=== PATIENT | female | born 1960 | race Caucasian/White ===

== ENCOUNTER 2016-07-04 12:25 | Inpatient (IN) | payer OTHER ==
--- NOTE | ~2016-07-04 | DS ---
Discharge Summary [facility] [address] [place]. [address] NAME: SUSHMA WOODALL : 62 STATUS : DIS IN PAT#: [id number] AGE: 55 ADM/REG DATE : 07/04/16 MR#: [id number] REPORT SERV DATE: 07/08/16 DICTATED BY: GERHARD MARQUEZ DATE: 07/07/16 REPORT STATUS : Draft TRANSCRIBED BY: MODL DATE: 07/07/16 ADMISSION DATE: 07/04/2016 DISCHARGE DATE: 07/07/2016 HISTORY OF PRESENT ILLNESS: The patient is a 55-year-old female with a history of Crohn's disease, who presented to the hospital with a complaint of nausea, vomiting, and abdominal pain. For further details, please refer to H and P dictated by Dr. Nitish Resendiz on 07/05/2016. HOSPITAL COURSE: Upon presentation, the patient was admitted on the Hospitalist Service for further management. She was noted to be severely dehydrated. The patient has several electrolyte abnormalities. Also on presentation, the patient was noted to have an DRE with a creatinine of 3.0. The patient was subsequently started on IV fluids and electrolyte abnormalities were corrected. Status post placement on IV fluids, the patient's creatinine has trended out nicely, currently today is 1.4. She reports complete resolution of her symptoms. She has also remained hemodynamically stable during this hospitalization. Given completion of workup, given her hemodynamic stability, the patient will be discharged today to follow up with her primary care physician. Plan was discussed with the patient, who voices understanding, is agreeable with this plan. DISCHARGE DIAGNOSES: 1. Volume depletion. 2. Acute kidney injury. 3. Hypokalemia. 4. Hypomagnesemia. 5. Crohn's disease. 6. Chronic perirectal fistula. 7. Tobacco abuse. DISCHARGE MEDICATIONS: Azathioprine 50 mg p.o. daily, Cymbalta 60 mg p.o. daily, Imodium 4 mg p.o. three times a day, magnesium oxide 400 mg p.o. three times a day, omeprazole 20 mg p.o. daily, sertraline 50 mg p.o. daily. CONSULTANTS: No consultants. IMAGIN. CT abdomen and pelvis without contrast, impression:. a. No definite acute abnormality appreciated within the abdomen or pelvis. No gross CT evidence for acute pancreatitis. b. The patient post right hemicolectomy with ileocolonic anastomosis near the level of the hepatic flexure of the colon. There is a diverting ileostomy present. No bowel obstruction pattern demonstrated. c. Biliary nonobstructing nephrolithiasis. 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 For further details, please refer to CT imaging from 07/04/2016. Discharge Summary [address] [address] NAME: SUSHMA WOODALL : 62 STATUS : DIS IN PAT#: [id number] AGE: 55 ADM/REG DATE : 07/04/16 MR#: [id number] REPORT SERV DATE: 07/08/16 DICTATED BY: GERHARD MARQUEZ DATE: 07/07/16 REPORT STATUS : Draft TRANSCRIBED BY: JOSÉ MANUEL DATE: 07/07/16 DISPOSITION: The patient will be discharged home. ACTIVITY: As tolerated. The patient was also counseled to abstain from tobacco use. DIET: As tolerated. Greater than 30 minutes was spent coordinating care, planning discharge, providing counseling, medication reconciliation, and dictation of note. ISIS/JOSÉ MANUEL Gerhard Marquez MD / [id number] CC: MD Kristian Dietrich M.D.
--- NOTE | ~2016-07-04 | HP ---
History And Physical [place] [id number] [facility] [place]. [address] NAME: SUSHMA WOODALL : 62 STATUS : ADM IN PAT#: [id number] AGE: 55 ADM/REG DATE : 07/04/16 MR#: [id number] REPORT SERV DATE: 07/05/16 DICTATED BY: STANLEY RENTERIA DATE: 07/04/16 REPORT STATUS : Draft TRANSCRIBED BY: MODL DATE: 07/04/16 DATE OF ADMISSION: 07/04/2016 CHIEF COMPLAINT: A 55-year-old female with chronic Crohn's disease, now presenting with nausea, vomiting, abdominal pain, and evidence of severe dehydration. HISTORY OF PRESENT ILLNESS: The patient's history was obtained through careful interview with the patient, coupled with review of [facility] medical records. The patient, just on the day prior to admission, began to develop extreme nausea with uncontrolled vomiting. She vomited up bile, no blood. She did not notice any increased ostomy output, but she had severe abdominal cramping pain, felt diffusely of 15 to 20 out of 10 severity, she describes it. She denies any fevers or chills. She also had cramping and discomfort over "all the muscles" of her body. No lightheadedness, but she almost fell two to two times yesterday. She has felt weak. She has had occasional palpitations, but none today. No shortness of breath. No chest pain. No anxiety. No panic attacks. No rash. No change in urine habit. She has no rectal output at all after her ostomy placement. She claims that her seton tubing for chronic cshuyler-rectal fistulas is stable and without any pain, minimal bleeding, and no purulent drainage. It seems to be well controlled as far she can tell. REVIEW OF SYSTEMS: Otherwise, a 14-point review of systems was obtained and was negative. PAST MEDICAL HISTORY: 1. Crohn's disease, now on Imuran and Humira, previously on Remicade and Stelara with a history of a right colectomy with ostomy. 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 3. Hypertension. 4. Urinary tract infection. 5. Anxiety and panic attacks. 6. Perianal fistulas, followed by Dr. Pal. 7. Fibromyalgia. 8. Nephrolithiasis. 9. Cholelithiasis. 10.Left ear drum perforation with otitis media. 11.Chronic kidney disease stage 3. Baseline creatinine of about 1.3. 12.No cardiac disease. 13.No lung disease. History And Physical [address] [place]. [address] NAME: SUSHMA WOODALL : 62 STATUS : ADM IN PAT#: [id number] AGE: 55 ADM/REG DATE : 07/04/16 MR#: [id number] REPORT SERV DATE: 07/05/16 DICTATED BY: STANLEY RENTERIA DATE: 07/04/16 REPORT STATUS : Draft TRANSCRIBED BY: JOSÉ MANUEL DATE: 07/04/16 PAST SURGICAL HISTORY: 1. Ostomy with right colectomy. 2. Appendectomy. 3. Hysterectomy. 4. x2. 5. Breast biopsy. 6. Partial thyroidectomy. ALLERGIES: FLAGYL, FLUOROQUINOLONES, REMICADE/INFLIXIMAB. SOCIAL HISTORY: The patient has been cutting back on smoking. No alcohol abuse. She is , but her is disabled from strokes. She has two children, who live locally, four grandchildren. She lives in [place], [place]. Recently moved in with her daughter. FAMILY HISTORY: Cousin with Crohn's disease. A strong family history of diabetes and heart disease. CURRENT MEDICATIONS: Include Humira 40 mg subcutaneous weekly, Imuran 50 mg p.o. daily, Cymbalta 60 mg p.o. daily, hydrocodone p.r.n., Imodium 4 mg p.o. t.i.d. schedule, magnesium 400 mg p.o. t.i.d., Robaxin 500 mg p.o. t.i.d. p.r.n., Prilosec 20 mg p.o. daily, potassium 20 mEq p.o. daily, Phenergan p.r.n., Zoloft 50 mg daily, octreotide 60 mg subcutaneous daily. PHYSICAL EXAMINATION: VITAL SIGNS: Temperature 98.1, pulse 97, blood pressure 96/50, respiratory rate is 16, O2 saturation 98% on room air. GENERAL: A pleasant, cooperative female, in no particular distress at this time. HEENT: Pupils equal, round, and reactive to light. No conjunctival pallor. No scleral icterus. Nares are patent. Oropharynx is clear of obstruction. Very dry mucous membranes. NECK: Trachea midline. No thyromegaly. LYMPH: No cervical lymphadenopathy. No supraclavicular lymphadenopathy. RESPIRATORY: Clear to auscultation at bases. No wheezes, rales, or rhonchi. Normal respiratory effort. CARDIOVASCULAR: Regular rate and rhythm. No murmurs, rubs, or gallops. No current extremity edema is appreciated. ABDOMEN: Minimally tender throughout. Nonfocal. No guarding. No rebound. Nondistended. Active bowel tones. No hepatosplenomegaly. DERMATOLOGIC: Warm and dry extremities. No pallor. No cyanosis. RECTAL: Like ways the exam was done with female salvage mechanic of the perirectal area that showed a stable appearing perirectal and anal fistulas with no purulent drainage, no fluctuance, no erythema, no heat. Generally, nontender to exam with stable appearing seton tubing. The patient does have peripheral tenting of her skin to suggest dehydration. PSYCHIATRIC: Normal affect. Good mood. Alert and oriented x3. LABORATORY DATA: Ionized calcium is very low at 3.17. Troponin negative. Lipase 700. Lactic acid 0.8. Alkaline phosphatase 273, total bilirubin 0.8. Sodium 139, potassium 4.1 History And Physical [address] [address] NAME: SUSHMA WOODALL : 62 STATUS : ADM IN [facility]#: [id number] AGE: 55 ADM/REG DATE : 07/04/16 MR#: [id number] REPORT SERV DATE: 07/05/16 DICTATED BY: STANLEY RENTERIA DATE: 07/04/16 REPORT STATUS : Draft TRANSCRIBED BY: MODL DATE: 07/04/16 chloride 103, bicarb 25, BUN 52, creatinine 3.0 from baseline creatinine of 1.3, glucose 98. White blood count 9.8, hemoglobin 11, hematocrit 33, platelets 204. Urinalysis shows 8 white blood cells, moderate leukocyte esterase, but also 7 epithelial cells. STUDIES: 1. Chest x-ray by my own evaluation shows no acute cardiopulmonary process. 2. CT scan of the abdomen and pelvis shows no acute abnormality, chronic nephrolithiasis, chronic changes from colectomy and ostomy placement. Noted that there were bilateral moderate-sized inguinal lymphadenopathy. ASSESSMENT AND PLAN: 1. Acute renal failure with signs of dehydration and history of dehydration. We will try IV fluids. There may be an element of acute tubular necrosis from chronic hypotension as well (?). Noted a negative CT scan of the abdomen and pelvis. 2. Hypocalcemia. We will replace and monitor closely on telemetry bed. 3. Crohn disease. Seems well controlled on Imuran and Humira. Followed by Dr. Sheets, outpatient. 4. Chronic perirectal fistulas with seton and tubing. Obtain a Wound Care consult, stable uncomplicated by exam and history. 5. Short bowel syndrome with chronic ostomy. KPL/MODL Stanley Renteria M.D. / [id number] CC: MD DELMIS Dietrich JUNG T. Michael Goodman, M.D. Shauna Lorenzo-Rivero, M.D.
[~2016-07-04 12:25] MED LIST: ANTIBIOTIC PO; BENTYL10 PO; DIL2TAB PO; HUMIRA PEN SC; HUMIRA SC; IMOD PO; IMU PO; KONSYL100 % PO; LIDOCAINE 2%; MAGOX4 PO; METPAKSF PO; NORCO1 TA2 PO; OMNICEF300 PO; PR25 PO; SEPTRA SUSPENS100 ML PO; TEMOVATE CREAM30 GM TOP; TEMOVATE0.051 TOP; ZESTRIL30 MG PO; ZOL50 PO; [UNRECOGNIZED DRUG - CODE] IV; [UNRECOGNIZED DRUG - CODE] SC
[2016-07-04 13:28] LABS: BASOPHILS 0.4 %; BASOPHILS ABSOLUTE 0.04 10/3/uL (0.0-0.16); EOSINOPHILS 0.6 %; EOSINOPHILS ABSOLUTE 0.06 10/3/uL (0.0-0.53); HEMOGLOBIN 11.5 g/dL (12.0-16.0); IMMATURE GRANULOCYTES 0.2 %; IMMATURE GRANULOCYTES ABSOLUTE 0.02 10/3/uL (0.0-0.11); LYMPHOCYTES 20.8 %; LYMPHOCYTES ABSOLUTE 2.04 10/3/uL (0.67-4.30); MEAN CORPUSCULAR HEMOGLOB 29.5 pg (26.0-34.0); MEAN CORPUSCULAR VOLUME 84.4 fL (80-100); MEAN PLATELET VOLUME 10.4 fL (9.2-13.0); MONOCYTES ABSOLUTE 0.69 10/3/uL (0.21-1.20); NEUTROPHILS ABSOLUTE 6.95 10/3/uL (2.02-8.40); PLATELET COUNT 204 10/3/uL (150-400); RBC DISTRIBUTION WIDTH 15.8 % (12.0-16.0)
[2016-07-04 13:29] LABS: ER CBC TAT 0 Hrs 08 Mins; HEMATOCRIT 32.9 % (36.0-48.0); MANUAL DIFF NO %; WHITE BLOOD CELLS 9.8 10/3/uL (4.5-10.5)
[2016-07-04 13:41] LABS: ASCORBIC ACID (UR NOT ORDER) NEG (NEG); BILIRUBIN, URINE NEGATIVE (NEG); ER URINALYSIS TAT 0 Hrs 20 Mins; KETONE, URINE NEGATIVE (NEG); LEUKOCYTE ESTERASE(NOT OR MOD (NEG); NITRITE (URINE) NEG (NEG); WBC (NOT ORDERED) (RFLEX) 8 (0-5)
[2016-07-04 13:47] LABS: CHLORIDE, SERUM 103 MMOL/L (96-112); CO2 (CARBON DIOXIDE) 25 MMOL/L (24-34); GLUCOSE, SERUM 98 MG/DL (60-99); POTASSIUM, SERUM 4.1 MMOL/L (3.5-5.3); SGOT(AST) 32 U/L (5-40); SGPT(ALT) 21 U/L (5-65); SODIUM, SERUM 139 MMOL/L (135-148); TOTAL PROTEIN 8.3 G/DL (6.0-8.5)
[2016-07-04 13:49] LABS: A/G RATIO 0.6 (0.7-1.9); ALKALINE PHOSPHATASE 273 U/L (45-117); BUN (BLOOD UREA NITROGEN) 52 MG/DL (6-23); GFR AFRICAN AMERICAN 20 ML/MIN (>=60); GFR NON AFRICAN AMERICAN 17 ML/MIN (>=60); GLOBULIN 5.3 G/DL (2.5-4.1); TOTAL BILIRUBIN 0.4 MG/DL (0-1.2)
[2016-07-04 14:00] LABS: CALCIUM, SERUM 5.9 MG/DL (8.5-10.4)
[2016-07-04 14:58] LABS: TROPONIN I <0.02 NG/ML (<0.05)
[2016-07-04] MEDS ORDERED: MAGOX4 PO (16:20)
[2016-07-04] MEDS ORDERED: IMU PO (16:20)
[2016-07-04] MEDS ORDERED: CYMBALTA60 PO (16:20)
[2016-07-04] MEDS ORDERED: ZOL50 PO (16:21)
[2016-07-04] MEDS ORDERED: PRILO PO (16:21)
[2016-07-04] MEDS ORDERED: K-TABS10 MEQ PO (16:21)
[2016-07-04] MEDS ORDERED: PR25 PO (16:22)
[2016-07-04] MEDS ORDERED: METHOC500B PO (16:23)
[2016-07-04] MEDS ORDERED: IMOD PO (16:24)
[2016-07-04] MEDS ORDERED: OCTREOTIDE SC (16:26)
[2016-07-04] MEDS ORDERED: HUMIRA SC (16:27)
[2016-07-04] MEDS ORDERED: NORCO1 TA2 PO (16:27)
[2016-07-04 16:48] LABS: LACTATE 0.8 MMOL/L (0.3-2.4)
[2016-07-04 16:49] LABS: PHOSPHORUS, SERUM 4.2 MG/DL (2.5-4.5)
[2016-07-05 04:42] LABS: BASOPHILS 0.6 %; BASOPHILS ABSOLUTE 0.04 10/3/uL (0.0-0.16); EOSINOPHILS 1.1 %; EOSINOPHILS ABSOLUTE 0.08 10/3/uL (0.0-0.53); HEMOGLOBIN 9.6 g/dL (12.0-16.0); IMMATURE GRANULOCYTES 0.4 %; IMMATURE GRANULOCYTES ABSOLUTE 0.03 10/3/uL (0.0-0.11); LYMPHOCYTES 24.3 %; LYMPHOCYTES ABSOLUTE 1.76 10/3/uL (0.67-4.30); MEAN CORPUSCULAR HEMOGLOB 29.4 pg (26.0-34.0); MEAN PLATELET VOLUME 10.2 fL (9.2-13.0); MONOCYTES 5.8 %; MONOCYTES ABSOLUTE 0.42 10/3/uL (0.21-1.20); NEUTROPHILS 67.8 %; PLATELET COUNT 180 10/3/uL (150-400); RBC DISTRIBUTION WIDTH 15.6 % (12.0-16.0); RED CELL COUNT 3.26 10/6/uL (4.0-5.6); WHITE BLOOD CELLS 7.2 10/3/uL (4.5-10.5)
[2016-07-05 04:45] LABS: HEMATOCRIT 27.4 % (36.0-48.0); MANUAL DIFF NO %
[2016-07-05 04:47] LABS: INTERNATIONAL NORMAL RATI 1.2 UNITS (-); PROTIME (NOT ORD) 15.4 SEC (12.0-14.5)
[2016-07-05 04:48] LABS: PARTIAL THROMBO TIME 37.6 SEC (22.5-37.2)
[2016-07-05 05:03] LABS: A/G RATIO 0.6 (0.7-1.9); ALBUMIN 2.4 G/DL (3.5-5.0); CHLORIDE, SERUM 110 MMOL/L (96-112); CO2 (CARBON DIOXIDE) 23 MMOL/L (24-34); GLOBULIN 4.3 G/DL (2.5-4.1); GLUCOSE, SERUM 113 MG/DL (60-99); POTASSIUM, SERUM 3.4 MMOL/L (3.5-5.3); PREALBUMIN 22.9 MG/DL (17.0-43.0); SGOT(AST) 23 U/L (5-40); SGPT(ALT) 20 U/L (5-65); SODIUM, SERUM 142 MMOL/L (135-148); TOTAL BILIRUBIN 0.5 MG/DL (0-1.2); TOTAL PROTEIN 6.7 G/DL (6.0-8.5)
[2016-07-05 05:04] LABS: ALKALINE PHOSPHATASE 216 U/L (45-117); BUN (BLOOD UREA NITROGEN) 37 MG/DL (6-23); CALCIUM, SERUM 7.1 MG/DL (8.5-10.4); CREATININE 2.15 MG/DL (0.55-1.02); GFR AFRICAN AMERICAN 29 ML/MIN (>=60); GFR NON AFRICAN AMERICAN 25 ML/MIN (>=60); ULTRASENSITIVE TSH 0.763 MCIU/ML (0.358-3.740)
[2016-07-05 05:23] LABS: PROCALCITONIN 0.05 ng/mL (<0.5)
[2016-07-06 04:22] LABS: BASOPHILS 0.4 %; BASOPHILS ABSOLUTE 0.02 10/3/uL (0.0-0.16); EOSINOPHILS 2.2 %; EOSINOPHILS ABSOLUTE 0.12 10/3/uL (0.0-0.53); HEMATOCRIT 27.4 % (36.0-48.0); HEMOGLOBIN 9.4 g/dL (12.0-16.0); IMMATURE GRANULOCYTES 0.4 %; IMMATURE GRANULOCYTES ABSOLUTE 0.02 10/3/uL (0.0-0.11); LYMPHOCYTES 22.1 %; LYMPHOCYTES ABSOLUTE 1.23 10/3/uL (0.67-4.30); MEAN CORPUS HGB CONC 34.3 g/dL (32.0-36.0); MEAN CORPUSCULAR HEMOGLOB 29.4 pg (26.0-34.0); MEAN CORPUSCULAR VOLUME 85.6 fL (80-100); MEAN PLATELET VOLUME 10.3 fL (9.2-13.0); MONOCYTES 6.7 %; MONOCYTES ABSOLUTE 0.37 10/3/uL (0.21-1.20); NEUTROPHILS 68.2 %; PLATELET COUNT 174 10/3/uL (150-400); RBC DISTRIBUTION WIDTH 15.4 % (12.0-16.0); WHITE BLOOD CELLS 5.6 10/3/uL (4.5-10.5)
[2016-07-06 04:24] LABS: MANUAL DIFF NO %
[2016-07-06 04:48] LABS: A/G RATIO 0.6 (0.7-1.9); ALBUMIN 2.4 G/DL (3.5-5.0); CHLORIDE, SERUM 113 MMOL/L (96-112); CO2 (CARBON DIOXIDE) 21 MMOL/L (24-34); SGOT(AST) 16 U/L (5-40); SGPT(ALT) 12 U/L (5-65); SODIUM, SERUM 143 MMOL/L (135-148); TOTAL BILIRUBIN 0.4 MG/DL (0-1.2); TOTAL PROTEIN 6.4 G/DL (6.0-8.5)
[2016-07-06 04:50] LABS: ALKALINE PHOSPHATASE 161 U/L (45-117); BUN (BLOOD UREA NITROGEN) 21 MG/DL (6-23); CALCIUM, SERUM 8.3 MG/DL (8.5-10.4); CREATININE 1.52 MG/DL (0.55-1.02); GFR AFRICAN AMERICAN 45 ML/MIN (>=60); GFR NON AFRICAN AMERICAN 38 ML/MIN (>=60); GLUCOSE, SERUM 89 MG/DL (60-99); POTASSIUM, SERUM 4.5 MMOL/L (3.5-5.3)
[2016-07-07 05:18] LABS: BASOPHILS 0.4 %; BASOPHILS ABSOLUTE 0.02 10/3/uL (0.0-0.16); EOSINOPHILS 2.4 %; EOSINOPHILS ABSOLUTE 0.12 10/3/uL (0.0-0.53); HEMATOCRIT 25.2 % (36.0-48.0); HEMOGLOBIN 8.7 g/dL (12.0-16.0); IMMATURE GRANULOCYTES 0.2 %; IMMATURE GRANULOCYTES ABSOLUTE 0.01 10/3/uL (0.0-0.11); LYMPHOCYTES 30.2 %; LYMPHOCYTES ABSOLUTE 1.52 10/3/uL (0.67-4.30); MEAN CORPUS HGB CONC 34.5 g/dL (32.0-36.0); MEAN CORPUSCULAR HEMOGLOB 29.8 pg (26.0-34.0); MEAN CORPUSCULAR VOLUME 86.3 fL (80-100); MEAN PLATELET VOLUME 10.1 fL (9.2-13.0); MONOCYTES 6.6 %; MONOCYTES ABSOLUTE 0.33 10/3/uL (0.21-1.20); NEUTROPHILS 60.2 %; NEUTROPHILS ABSOLUTE 3.03 10/3/uL (2.02-8.40); PLATELET COUNT 166 10/3/uL (150-400); RBC DISTRIBUTION WIDTH 15.5 % (12.0-16.0); RED CELL COUNT 2.92 10/6/uL (4.0-5.6)
[2016-07-07 05:23] LABS: MANUAL DIFF NO %
[2016-07-07 05:58] LABS: A/G RATIO 0.6 (0.7-1.9); ALBUMIN 2.3 G/DL (3.5-5.0); ALKALINE PHOSPHATASE 164 U/L (45-117); BUN (BLOOD UREA NITROGEN) 20 MG/DL (6-23); CALCIUM, SERUM 8.3 MG/DL (8.5-10.4); CHLORIDE, SERUM 113 MMOL/L (96-112); CO2 (CARBON DIOXIDE) 23 MMOL/L (24-34); CREATININE 1.48 MG/DL (0.55-1.02); GFR AFRICAN AMERICAN 46 ML/MIN (>=60); GFR NON AFRICAN AMERICAN 40 ML/MIN (>=60); GLOBULIN 3.7 G/DL (2.5-4.1); GLUCOSE, SERUM 80 MG/DL (60-99); POTASSIUM, SERUM 4.2 MMOL/L (3.5-5.3); SGOT(AST) 17 U/L (5-40); SGPT(ALT) 13 U/L (5-65); SODIUM, SERUM 145 MMOL/L (135-148)
== END 2016-07-07 14:56 | disposition home or self-care (01) | DRG 683 ==
LOC: ER 12:25 → 7NO 19:08
PROVIDERS: Hospitalist; Nurse Practitioner
DX: N17.9 Acute kidney failure, unspecified (principal); K50.90 Crohn's disease, unspecified, without complications; K91.2 Postsurgical malabsorption, not elsewhere classified; E83.42 Hypomagnesemia; E83.51 Hypocalcemia; E86.0 Dehydration; K60.4 Rectal fistula; E87.6 Hypokalemia; N20.0 Calculus of kidney; F17.210 Nicotine dependence, cigarettes, uncomplicated; Z98.0 Intestinal bypass and anastomosis status; Z90.49 Acquired absence of other specified parts of digestive tract; Z93.2 Ileostomy status
CPT/HCPCS: 71010; 74176; 80053; 81001; 82150; 82272; 82330; 83605; 83690; 83735; 84100; 84134; 84145; 84443; 84484; 85025; 85610; 85730; 87040; 87086; 93005; 96365; 96368; 96375; 99291; A9270-GY; J0610; J2405; J3411; J7500

== ENCOUNTER 2016-07-12 13:22 | Observation (INO) | payer OTHER ==
--- NOTE | ~2016-07-12 | DS ---
Discharge Summary [facility] [address] [place]. [address] NAME: SUSHMA WOODALL : 62 STATUS : DIS Ge PAT#: [id number] AGE: 55 ADM/REG DATE : 07/12/16 MR#: [id number] REPORT SERV DATE: 07/18/16 DICTATED BY: ERICKA GERBER DATE: 07/17/16 REPORT STATUS : Draft TRANSCRIBED BY: MODL DATE: 07/17/16 ADMISSION DATE: 07/12/2016 DISCHARGE DATE: 07/17/2016 REASON FOR ADMISSION: Acute kidney injury secondary to high-output ileostomy and electrolyte derangements. HPI: Please refer to Dr. Brewster' history and physical dated 07/12/2016 for complete details regarding the patient's admission. The patient was admitted to the Hospitalist Service for acute kidney injury secondary to dehydration from high output ileostomy. HOSPITAL COURSE: The patient had an uncomplicated hospital course. She has had too numerous to count, readmissions for the same thing which is the same reason which is acute kidney injury secondary to high-output ileostomy. The patient has a history of Crohn's status post resection. Dr. Campo performed an ileostomy and she continues to have significant output. She was only on Imodium 3 times a day. She was discharged previously by my colleague, Dr. Carbajal on 07/07/2016. She then presented 4 days later for the same problem. When Dr. Carbajal discharge her, her creatinine was back down to baseline. When the patient was readmitted, she was started on IV fluids and electrolyte protocol. Her creatinine had come down to about 1.56 which is close to her baseline. That was on Sunday, we discontinued her IV fluids to see if she could remain hydrated without the use of IV fluids. The following day, her creatinine had bumped up from 1.56 to 1.69. We talked about her ostomy output and she has been changing her bag multiple times a day. We discussed trying to keep the amount of output from her bag equivalent to the amount of fluids that she takes in. We discussed taking 2 cans of the 11 ounce Gatorade with meals along with 2-3 L of water a day. The following day, which was the day of discharge, she stated that she had about 3 cans of Gatorade and about 2 L of water. Her creatinine actually came down a little bit at 1.64. She felt stable for discharge. The patient continues to remain at high rate of readmission given her high-output ileostomy. We did watch her in the hospital for 48 hours after IV fluids and her creatinine did stay the same. I increased her Imodium to 4 times a day from 3 times a day and also increased her potassium from 10 mEq daily to 20 mEq twice a day along with adding K-Phos as she has been having low phosphorus levels. Her cramps and spasms have resolved. The patient is stable for discharge. She has made an appointment with Dr. Campo for Sunday to discuss reversal of her ostomy which may help prevent these readmissions in the future. The patient discharged home in stable condition. DISCHARGE DIAGNOSES: 1. Acute kidney injury on CKD, stage III, secondary to dehydration from high output ileostomy. 2. Electrolyte derangement. 3. Short gut syndrome. 4. History of Crohn's status post resection. 5. History of perianal fistula. 6. Fibromyalgia. Discharge Summary [address] [address] NAME: SUSHMA WOODALL : 62 STATUS : DIS Ge PAT#: [id number] AGE: 55 ADM/REG DATE : 07/12/16 MR#: [id number] REPORT SERV DATE: 07/18/16 DICTATED BY: ERICKA GERBER DATE: 07/17/16 REPORT STATUS : Draft TRANSCRIBED BY: JOSÉ MANUEL DATE: 07/17/16 7. Generalized anxiety disorder. PROCEDURES: Include routine labs. DISCHARGE MEDICATIONS: Include Imuran 50 mg daily, Cymbalta 60 mg daily, loperamide 4 mg every six hours, magnesium oxide 400 mg three times a day, Prilosec 20 mg daily, potassium chloride 20 mEq twice a day, sertraline 50 mg daily, Phenergan p.r.n., Robaxin p.r.n., octreotide 50 mcg subcu daily, Humira 40 mg subcu weekly on Mondays, K-Phos neutral 500 mg 3 times a day. Spending over 30 minutes discharge planning and coordination of care on Ms. Woodall. IWONA Ericka Gerber MD / [id number] CC: MD Kristian Ledezma M.D. Shauna Lorenzo-Rivero, M.D. Michael Goodman, M.D.
--- NOTE | ~2016-07-12 | HP ---
History And Physical [place] [address] [facility] [place]. [address] NAME: SUSHMA WOODALL : 62 STATUS : ADM IN [facility]#: [id number] AGE: 55 ADM/REG DATE : 07/12/16 MR#: [id number] REPORT SERV DATE: 07/12/16 DICTATED BY: ANGELO MA DATE: 07/12/16 REPORT STATUS : Draft TRANSCRIBED BY: JOSÉ MANUEL DATE: 07/12/16 DATE OF ADMISSION: 07/12/2016 CHIEF COMPLAINT: Muscle cramps. HISTORY OF PRESENT ILLNESS: The patient is a very pleasant 55-year-old white female, who is well known to the hospitalist service. She suffers from a longstanding history of Crohn's disease. Actually had an ileostomy placed in October 2016. She has had multiple admissions since then for high output from her ostomy and associated acute kidney injury and various electrolyte abnormalities. She actually just left the hospital on 07/08/2015, with an admission of acute kidney injury and hypocalcemia. She had her electrolytes replaced. She was hydrated and her labs improved. She went home feeling well. She states over the last 12 hours, she has had some muscle cramps in her legs and arms. She presented to an outside hospital at [facility]. She was noted to be hypomagnesemic with an acute kidney injury again. She actually had a period of time between March and June where she had no admissions to the hospital. I questioned her about any change in her medication regimen. She actually decreased her Imodium in May. She states since then her ostomy output has picked up. She has no abdominal pain. She has had no fevers. She states she has had no bloody stools. Her stool appears normal to her. She has had no dysuria. No chest pain. No shortness of breath. Otherwise has felt well. She has felt weak and tired. She is eating and drinking normally. PAST MEDICAL HISTORY: 1. Positive for Crohn disease with history of colectomy and ileostomy. 2. Short gut syndrome. 3. Recurrent renal failure secondary to high output from ostomy. 4. Hypertension. 5. Urinary tract infections. 6. Anxiety. 7. Panic attacks. 8. Perianal fistulas. 9. Fibromyalgia. 10.Nephrolithiasis. 11.Cholelithiasis. 12.Left eardrum perforation. 13.Stage 3 chronic kidney disease. Baseline creatinine around 1.3. PAST SURGICAL HISTORY: 1. Ostomy with right colectomy. 2. Appendectomy. 3. Hysterectomy. 4. x2. 5. Breast biopsy. 6. Partial thyroidectomy. ALLERGIES: FLAGYL, FLUOROQUINOLONES, REMICADE. History And Physical [address] [address] NAME: SUSHMA WOODALL : 62 STATUS : ADM IN PAT#: [id number] AGE: 55 ADM/REG DATE : 07/12/16 MR#: [id number] REPORT SERV DATE: 07/12/16 DICTATED BY: ANGELO MA DATE: 07/12/16 REPORT STATUS : Draft TRANSCRIBED BY: JOSÉ MANUEL DATE: 07/12/16 SOCIAL HISTORY: She has a history of smoking. She does not use alcohol. She is , but he is disabled from a stroke. She has children and grandchildren. FAMILY HISTORY: She has a cousin with Crohn's, and there is a history of diabetes and heart disease. HOME MEDICATIONS: Reviewed and attached. REVIEW OF SYSTEMS: Full 10-point review of systems obtained. Pertinent positives are mentioned in the HPI. PHYSICAL EXAMINATION: VITAL SIGNS: BP 99/58, temperature is 97.8, pulse 88, respiration rate 16, and sats are 99%. GENERAL: Thin, appearing white female. HEENT: Normocephalic, atraumatic. Throat is clear. NECK: Supple. HEART: Regular rate and rhythm. LUNGS: Grossly clear. ABDOMEN: Soft, nontender, nondistended. She has yellow stool in her ostomy bag. She is nontender. EXTREMITIES: Warm and dry. SKIN: Intact without rash or lesion. LABORATORY AND X-RAY: H and H 12 and 36, white count 12.6, platelets 298. Sodium 134, potassium 3.8, chloride 91, CO2 of 29, BUN and creatinine 42 and 3.5, glucose 138. Lipase 649. CPK 98. Albumin 4. Coags are normal. Phosphorus is 4.7, anion gap was 17, calcium was 9.5, total bilirubin is 0.7. ALT 38, alkaline phosphatase 271. Mag is 0.9. She received 2 g of mag at the outside hospital. ASSESSMENT/PLAN: 1. Acute kidney injury, likely secondary to volume depletion related to ostomy output. The only inciting event I can see is that she had her Imodium reduced in May. We are going to increase her Imodium back up to 2 tablets q.6 hours as opposed to two tablets every 8 hours. We will monitor in's and out's. We will hydrate her aggressively overnight and replace her electrolytes. She has no abdominal pain. No change in her stool consistency. No blood in her stool. I think this is simply related to her ostomy. 2. Positive UA at the outside hospital with 10 to 25 whites. She had a urine culture on which was negative. I am going to repeat it. I am going to place her on antibiotics. She has no dysuria, no fever, and no white count. She has no fever and no dysuria, although she does have a slight white count. We will follow up on her culture and go from there. 3. History of Crohn's with ileostomy and high output, on immunosuppressives. We will continue these as she is taking as an outpatient. We will work on increasing her Imodium and correcting her electrolyte and acute kidney injury. History And Physical [address] [place]. [address] NAME: SUSHMA WOODALL : 62 STATUS : ADM IN [facility]#: [id number] AGE: 55 ADM/REG DATE : 07/12/16 MR#: [id number] REPORT SERV DATE: 07/12/16 DICTATED BY: ANGELO MA DATE: 07/12/16 REPORT STATUS : Draft TRANSCRIBED BY: JOSÉ MANUEL DATE: 07/12/16 4. Muscle cramps likely secondary to volume depletion, dehydration, hypomagnesemia, etc. We will replete her electrolytes and correct her hypovolemia and acute kidney injury. 5. History of anxiety. 6. History of nephrolithiasis. 7. DVT prophylaxis. Subcutaneous heparin. 8. Disposition. Pending above aforementioned plan and workup. CHERELLE/JOSÉ MANUEL Angelo Ma M.D. / [id number] CC: Rola Dennison M.D. Shauna Lorenzo-Rivero, M.D. Jung Park, M.D.
[~2016-07-12 13:22] MED LIST changes: +CYMBALTA60 PO; +K-TABS10 MEQ PO; +METHOC500B PO; +OCTREOTIDE SC; +PRILO PO
[2016-07-12 16:11] LABS: CALCIUM, SERUM 8.2 MG/DL (8.5-10.4); PHOSPHORUS, SERUM 4.6 MG/DL (2.5-4.5)
[2016-07-12 16:13] LABS: BUN (BLOOD UREA NITROGEN) 40 MG/DL (6-23); CHLORIDE, SERUM 94 MMOL/L (96-112); CO2 (CARBON DIOXIDE) 29 MMOL/L (24-34); CREATININE 3.05 MG/DL (0.55-1.02); GFR AFRICAN AMERICAN 19 ML/MIN (>=60); GFR NON AFRICAN AMERICAN 17 ML/MIN (>=60); GLUCOSE, SERUM 97 MG/DL (60-99); POTASSIUM, SERUM 2.9 MMOL/L (3.5-5.3); SODIUM, SERUM 136 MMOL/L (135-148)
[2016-07-12 18:38] LABS: ASCORBIC ACID (UR NOT ORDER) NEG (NEG); BILIRUBIN, URINE NEGATIVE (NEG); KETONE, URINE NEGATIVE (NEG); LEUKOCYTE ESTERASE(NOT OR SMALL (NEG); WBC (NOT ORDERED) (RFLEX) 5 (0-5)
[2016-07-13 06:24] LABS: BASOPHILS 0.6 %; BASOPHILS ABSOLUTE 0.04 10/3/uL (0.0-0.16); EOSINOPHILS 3.5 %; EOSINOPHILS ABSOLUTE 0.22 10/3/uL (0.0-0.53); IMMATURE GRANULOCYTES 0.3 %; IMMATURE GRANULOCYTES ABSOLUTE 0.02 10/3/uL (0.0-0.11); LYMPHOCYTES ABSOLUTE 1.84 10/3/uL (0.67-4.30); MEAN CORPUS HGB CONC 34.2 g/dL (32.0-36.0); MEAN CORPUSCULAR HEMOGLOB 29.7 pg (26.0-34.0); MEAN CORPUSCULAR VOLUME 86.6 fL (80-100); MONOCYTES 5.2 %; MONOCYTES ABSOLUTE 0.33 10/3/uL (0.21-1.20); NEUTROPHILS 61.4 %; PLATELET COUNT 181 10/3/uL (150-400); RBC DISTRIBUTION WIDTH 15.5 % (12.0-16.0); RED CELL COUNT 3.37 10/6/uL (4.0-5.6); WHITE BLOOD CELLS 6.4 10/3/uL (4.5-10.5)
[2016-07-13 06:28] LABS: HEMATOCRIT 29.2 % (36.0-48.0); MANUAL DIFF NO %
[2016-07-13 06:44] LABS: BUN (BLOOD UREA NITROGEN) 30 MG/DL (6-23); CALCIUM, SERUM 8.1 MG/DL (8.5-10.4); CHLORIDE, SERUM 106 MMOL/L (96-112); CO2 (CARBON DIOXIDE) 26 MMOL/L (24-34); CREATININE 2.26 MG/DL (0.55-1.02); GFR AFRICAN AMERICAN 28 ML/MIN (>=60); GFR NON AFRICAN AMERICAN 24 ML/MIN (>=60); GLUCOSE, SERUM 114 MG/DL (60-99); PHOSPHORUS, SERUM 4.2 MG/DL (2.5-4.5); POTASSIUM, SERUM 3.6 MMOL/L (3.5-5.3); SODIUM, SERUM 140 MMOL/L (135-148)
[2016-07-14 06:38] LABS: BASOPHILS 0.6 %; BASOPHILS ABSOLUTE 0.03 10/3/uL (0.0-0.16); EOSINOPHILS 2.4 %; EOSINOPHILS ABSOLUTE 0.13 10/3/uL (0.0-0.53); HEMOGLOBIN 9.2 g/dL (12.0-16.0); IMMATURE GRANULOCYTES 0.2 %; IMMATURE GRANULOCYTES ABSOLUTE 0.01 10/3/uL (0.0-0.11); LYMPHOCYTES 32.7 %; LYMPHOCYTES ABSOLUTE 1.77 10/3/uL (0.67-4.30); MEAN CORPUS HGB CONC 34.1 g/dL (32.0-36.0); MEAN CORPUSCULAR HEMOGLOB 29.9 pg (26.0-34.0); MEAN CORPUSCULAR VOLUME 87.7 fL (80-100); MEAN PLATELET VOLUME 10.3 fL (9.2-13.0); MONOCYTES ABSOLUTE 0.38 10/3/uL (0.21-1.20); NEUTROPHILS 57.1 %; NEUTROPHILS ABSOLUTE 3.09 10/3/uL (2.02-8.40); PLATELET COUNT 161 10/3/uL (150-400); RBC DISTRIBUTION WIDTH 15.6 % (12.0-16.0); RED CELL COUNT 3.08 10/6/uL (4.0-5.6); WHITE BLOOD CELLS 5.4 10/3/uL (4.5-10.5)
[2016-07-14 06:39] LABS: MANUAL DIFF NO %
[2016-07-14 06:49] LABS: BUN (BLOOD UREA NITROGEN) 20 MG/DL (6-23); CALCIUM, SERUM 7.7 MG/DL (8.5-10.4); CHLORIDE, SERUM 112 MMOL/L (96-112); CO2 (CARBON DIOXIDE) 25 MMOL/L (24-34); CREATININE 1.75 MG/DL (0.55-1.02); GFR AFRICAN AMERICAN 38 ML/MIN (>=60); GFR NON AFRICAN AMERICAN 32 ML/MIN (>=60); GLUCOSE, SERUM 101 MG/DL (60-99); PHOSPHORUS, SERUM 2.4 MG/DL (2.5-4.5); POTASSIUM, SERUM 3.7 MMOL/L (3.5-5.3); SODIUM, SERUM 143 MMOL/L (135-148)
[2016-07-15 04:49] LABS: BASOPHILS 0.6 %; BASOPHILS ABSOLUTE 0.03 10/3/uL (0.0-0.16); EOSINOPHILS 2.2 %; HEMATOCRIT 25.3 % (36.0-48.0); HEMOGLOBIN 8.6 g/dL (12.0-16.0); IMMATURE GRANULOCYTES 0.2 %; IMMATURE GRANULOCYTES ABSOLUTE 0.01 10/3/uL (0.0-0.11); LYMPHOCYTES 30.1 %; LYMPHOCYTES ABSOLUTE 1.39 10/3/uL (0.67-4.30); MANUAL DIFF NO %; MEAN CORPUSCULAR VOLUME 88.2 fL (80-100); MEAN PLATELET VOLUME 10.1 fL (9.2-13.0); MONOCYTES 4.1 %; MONOCYTES ABSOLUTE 0.19 10/3/uL (0.21-1.20); NEUTROPHILS 62.8 %; PLATELET COUNT 148 10/3/uL (150-400); RBC DISTRIBUTION WIDTH 15.6 % (12.0-16.0); RED CELL COUNT 2.87 10/6/uL (4.0-5.6); WHITE BLOOD CELLS 4.6 10/3/uL (4.5-10.5)
[2016-07-15 05:09] LABS: CALCIUM, SERUM 8.4 MG/DL (8.5-10.4); CHLORIDE, SERUM 114 MMOL/L (96-112); CO2 (CARBON DIOXIDE) 25 MMOL/L (24-34); CREATININE 1.56 MG/DL (0.55-1.02); GFR AFRICAN AMERICAN 43 ML/MIN (>=60); GFR NON AFRICAN AMERICAN 37 ML/MIN (>=60); POTASSIUM, SERUM 3.9 MMOL/L (3.5-5.3); SODIUM, SERUM 144 MMOL/L (135-148)
[2016-07-15 05:10] LABS: BUN (BLOOD UREA NITROGEN) 14 MG/DL (6-23); GLUCOSE, SERUM 125 MG/DL (60-99); PHOSPHORUS, SERUM 1.6 MG/DL (2.5-4.5)
[2016-07-16 04:59] LABS: BASOPHILS 0.4 %; BASOPHILS ABSOLUTE 0.03 10/3/uL (0.0-0.16); EOSINOPHILS 1.7 %; EOSINOPHILS ABSOLUTE 0.12 10/3/uL (0.0-0.53); HEMOGLOBIN 9.5 g/dL (12.0-16.0); IMMATURE GRANULOCYTES 0.3 %; IMMATURE GRANULOCYTES ABSOLUTE 0.02 10/3/uL (0.0-0.11); LYMPHOCYTES 23.2 %; LYMPHOCYTES ABSOLUTE 1.68 10/3/uL (0.67-4.30); MEAN CORPUS HGB CONC 34.1 g/dL (32.0-36.0); MEAN CORPUSCULAR HEMOGLOB 29.9 pg (26.0-34.0); MEAN CORPUSCULAR VOLUME 87.7 fL (80-100); MEAN PLATELET VOLUME 10.4 fL (9.2-13.0); MONOCYTES 5.7 %; MONOCYTES ABSOLUTE 0.41 10/3/uL (0.21-1.20); NEUTROPHILS 68.7 %; NEUTROPHILS ABSOLUTE 4.97 10/3/uL (2.02-8.40); PLATELET COUNT 169 10/3/uL (150-400); RBC DISTRIBUTION WIDTH 15.7 % (12.0-16.0); RED CELL COUNT 3.18 10/6/uL (4.0-5.6)
[2016-07-16 05:03] LABS: HEMATOCRIT 27.9 % (36.0-48.0); MANUAL DIFF NO %; WHITE BLOOD CELLS 7.2 10/3/uL (4.5-10.5)
[2016-07-16 05:20] LABS: BUN (BLOOD UREA NITROGEN) 14 MG/DL (6-23); CALCIUM, SERUM 8.8 MG/DL (8.5-10.4); CHLORIDE, SERUM 112 MMOL/L (96-112); CO2 (CARBON DIOXIDE) 21 MMOL/L (24-34); CREATININE 1.69 MG/DL (0.55-1.02); GFR AFRICAN AMERICAN 39 ML/MIN (>=60); GFR NON AFRICAN AMERICAN 34 ML/MIN (>=60); PHOSPHORUS, SERUM 1.7 MG/DL (2.5-4.5); SODIUM, SERUM 142 MMOL/L (135-148)
[2016-07-16 05:25] LABS: GLUCOSE, SERUM 84 MG/DL (60-99); POTASSIUM, SERUM 4.9 MMOL/L (3.5-5.3)
[2016-07-17 04:48] LABS: BASOPHILS 0.3 %; BASOPHILS ABSOLUTE 0.02 10/3/uL (0.0-0.16); EOSINOPHILS 1.5 %; EOSINOPHILS ABSOLUTE 0.11 10/3/uL (0.0-0.53); HEMATOCRIT 28.7 % (36.0-48.0); HEMOGLOBIN 9.7 g/dL (12.0-16.0); IMMATURE GRANULOCYTES 0.3 %; IMMATURE GRANULOCYTES ABSOLUTE 0.02 10/3/uL (0.0-0.11); LYMPHOCYTES 25.3 %; LYMPHOCYTES ABSOLUTE 1.81 10/3/uL (0.67-4.30); MEAN CORPUS HGB CONC 33.8 g/dL (32.0-36.0); MEAN CORPUSCULAR HEMOGLOB 29.6 pg (26.0-34.0); MEAN CORPUSCULAR VOLUME 87.5 fL (80-100); MEAN PLATELET VOLUME 10.4 fL (9.2-13.0); MONOCYTES 6.6 %; MONOCYTES ABSOLUTE 0.47 10/3/uL (0.21-1.20); NEUTROPHILS ABSOLUTE 4.72 10/3/uL (2.02-8.40); PLATELET COUNT 170 10/3/uL (150-400); RBC DISTRIBUTION WIDTH 15.6 % (12.0-16.0); RED CELL COUNT 3.28 10/6/uL (4.0-5.6); WHITE BLOOD CELLS 7.2 10/3/uL (4.5-10.5)
[2016-07-17 04:53] LABS: MANUAL DIFF NO %
[2016-07-17 05:01] LABS: BUN (BLOOD UREA NITROGEN) 15 MG/DL (6-23); CALCIUM, SERUM 9.1 MG/DL (8.5-10.4); CHLORIDE, SERUM 111 MMOL/L (96-112); CO2 (CARBON DIOXIDE) 22 MMOL/L (24-34); CREATININE 1.64 MG/DL (0.55-1.02); GFR AFRICAN AMERICAN 41 ML/MIN (>=60); GFR NON AFRICAN AMERICAN 35 ML/MIN (>=60); GLUCOSE, SERUM 92 MG/DL (60-99); POTASSIUM, SERUM 4.5 MMOL/L (3.5-5.3); SODIUM, SERUM 141 MMOL/L (135-148)
[2016-07-17 05:04] LABS: PHOSPHORUS, SERUM 2.6 MG/DL (2.5-4.5)
[2016-07-17] MEDS ORDERED: KLOR-CON M2020 MEQ PO (08:58)
[2016-07-17] MEDS ORDERED: K-PHO1 PO (08:58)
[2016-07-17] MEDS ORDERED: IMOD PO (08:59)
== END 2016-07-17 12:19 | disposition home or self-care (01) ==
LOC: 4SO 13:22
PROVIDERS: Internal Medicine
DX: N17.9 Acute kidney failure, unspecified (principal); K50.90 Crohn's disease, unspecified, without complications; Z87.440 Personal history of urinary (tract) infections; F41.0 Panic disorder [episodic paroxysmal anxiety]; Z87.442 Personal history of urinary calculi; N18.3 Chronic kidney disease, stage 3 (moderate); I12.9 Hypertensive chronic kidney disease with stage 1 through stage 4 chronic kidney disease, or unspecified chronic kidney disease; Z90.49 Acquired absence of other specified parts of digestive tract; Z90.710 Acquired absence of both cervix and uterus; Z98.890 Other specified postprocedural states; Z88.8 Allergy status to other drugs, medicaments and biological substances; Z87.891 Personal history of nicotine dependence; E86.0 Dehydration; I45.89 Other specified conduction disorders; F41.1 Generalized anxiety disorder; M79.7 Fibromyalgia; Z79.899 Other long term (current) drug therapy; Z93.2 Ileostomy status
CPT/HCPCS: 80048; 81001; 82330; 83735; 84100; 84132; 85025; 87086; 96372; 96374; 96375; 96376; A9270-GY; G0378; J7500

== ENCOUNTER 2016-07-18 12:08 | Inpatient (IN) | payer OTHER ==
--- NOTE | ~2016-07-18 | DS ---
Discharge Summary [facility] [address] [place]. [address] NAME: SUSHMA WOODALL : 62 STATUS : DIS IN PAT#: [id number] AGE: 55 ADM/REG DATE : 07/18/16 MR#: [id number] REPORT SERV DATE: 08/08/16 DICTATED BY: NEVILLE PAL DATE: 08/07/16 REPORT STATUS : Draft TRANSCRIBED BY: JOSÉ MANUEL DATE: 08/07/16 Data Collection from hospitalization DISCHARGE DIAGNOSES: 1. Crohn's disease with undesired ileostomy status post ileostomy reversal. 2. Parathyroid. 3. Tobacco use. 4. Anemia. CONSULTATIONS: None. PROCEDURES PERFORMED: Ileostomy reversal, 07/24/2016. PATHOLOGY: Tissue from ileostomy-benign small bowel cutaneous margin with focal chronic inflammation of the margin and submucosal edema. Focal small bowel mucosal erosion. No active ileitis or granulomas or dysplasia. Cutaneous junction with lichenoid chronic inflammation and epithelial hyperplasia. DISCHARGE MEDICATIONS: Humira 40 mg subcutaneously every other week, Imuran 50 mg daily, Cymbalta 60 mg daily, Imodium 4 mg three times a day, Mag-Ox 400 mg three times a day, Robaxin 500 mg three times a day as needed, Prilosec 20 mg daily, K-Phos one tablet three times a day, Klor-Con 20 mEq twice a day, Phenergan 25 mg every six hours as needed, Zoloft 50 mg daily, octreotide 50 mcg subcutaneously daily. CONDITION AT DISCHARGE: Stable. DISPOSITION: The patient was discharged home on a regular diet with activities as instructed. She would follow up with me on 08/08/2016. She would follow up with Dr. Kristian Pappas, 08/01/2016. HOSPITAL COURSE: This is a 55-year-old female, who has severe perianal Crohn disease. She had undergone ileostomy diversion to decrease perianal disease, however, not only did the perianal disease not resolve, but she wound up with more than eight hospital admissions for dehydration, high ileostomy output, and acute kidney injury. For this reason, it was elected to proceed with ileostomy reversal. She was admitted to the hospital for further evaluation and treatment. Upon admission, her nutritional status was going to be checked. The following day, she was feeling better. She was afebrile. Her white count was 10.1. We were going to replete electrolytes plus IV fluids to optimize for surgery. Creatinine level had improved to 1.78. On the , she was tolerating a regular diet. There was improvement of acute kidney injury. Creatinine was now 1.5 with increased hydration. Over the next couple of days, she remained stable. Plans were being made to proceed with surgical intervention. She was ambulatory. She had no new complaints. There was high output from the ileostomy. Imodium was adjusted. On 07/24/2016, she was taken to the operating room, where she underwent the above-mentioned procedure. She tolerated this well and there were no complications. On postop day one, she was tolerating clear liquids. Chadwick catheter was removed. IV fluids Discharge Summary [address] [address] NAME: SUSHMA WOODALL : 62 STATUS : DIS IN PAT#: [id number] AGE: 55 ADM/REG DATE : 07/18/16 MR#: [id number] REPORT SERV DATE: 08/08/16 DICTATED BY: NEVILLE PAL DATE: 08/07/16 REPORT STATUS : Draft TRANSCRIBED BY: JOSÉ MANUEL DATE: 08/07/16 were continued. On 07/26/2016, she had some increased abdominal pain. She had had multiple bowel movements. She was tolerating a regular diet. Imodium was added to slow down her bowel movements. Discharge planning was performed. On 07/27/2016, she continued to tolerate her regular diet. Creatinine level was 1.48. Discharge instructions were given. Due to her improved and stable condition, she was discharged home with the above-stated instructions. Information collected by: Huong Tyler I submit the above information as my discharge summary. DENISE/JOSÉ MANUEL Neville Pal M.D. / [id number] CC: Rola Rendon M.D.
--- NOTE | ~2016-07-18 | OP ---
Record Of Operation [facility] [address] [place]. [address] NAME: SUSHMA WOODALL : 62 STATUS : ADM IN PAT#: [id number] AGE: 55 ADM/REG DATE : 07/18/16 MR#: [id number] REPORT SERV DATE: 07/24/16 DICTATED BY: NEVILLE PAL DATE: 07/24/16 REPORT STATUS : Draft TRANSCRIBED BY: JOSÉ MANUEL DATE: 07/24/16 DATE OF PROCEDURE: 07/24/2016 PREPROCEDURE DIAGNOSIS: Crohn disease with undesired ileostomy. POSTPROCEDURE DIAGNOSIS: Crohn disease with undesired ileostomy. INDICATIONS: Ms. Woodall is a 55-year-old female with severe perianal Crohn disease. She had undergone ileostomy diversion to decrease perianal disease, however, that only did the perianal disease not resolve, but she wound up with more than eight hospital admissions for dehydration, high ileostomy output, and acute kidney injury. For this reason, the decision was made to reverse the ileostomy. FORMING MACHINE TENDER: Gilberto Witt. DESCRIPTION OF PROCEDURE: The patient was taken to the operating room, induced under general anesthesia, prepped and draped in the usual sterile fashion after the ileostomy was closed with a pursestring suture. Then, an elliptical incision was made at the level of the ileostomy with the scalpel. This was carried down to the level of the fascia using cautery. Sharp dissection had to be performed from the ileum from the muscle layer of the rectus muscle to free enough attachments in order to create the anastomosis. Once the two limbs were free circumferentially from the wound, blue towels were placed on the abdomen. The ileostomy spur was removed by transecting the bowel distally using a blue load of the Endo- CASTILLO. The mesentery was taken with Jessica and a 3-0 Vicryl tie and then the ileostomy spur was passed off the table and sent to Pathology. The new anastomosis was created by removing the antimesenteric corners of the limbs of the small bowel and placing a load of the Endo- CASTILLO down each limb, taking great care to fire on the antimesenteric border. Once this was accomplished, the new enterotomy was closed using four Allis clamps, taking care not to juxtapose staple lines. Following this, the remnant was removed using a TX-60 stapler. The remnant was removed using curved Root scissors and then the any intersecting staple lines were reinforced with 3-0 Vicryl suture including a crotch stitch. At this point, all dirty instruments, towels, and gloves were removed and replaced. The anastomosis was placed back into the abdominal cavity. The fascia and rectus muscle were brought together using a PDS. The wound was irrigated. Sandy's was closed with a running 3-0 Vicryl suture and then the skin was closed with interrupted 3-0 Vicryls with 1-cm gaps. Betadine-soaked christopher were placed in between the gaps followed by two 4x4s and silk tape. She tolerated the procedure well. OLY/JOSÉ MANUEL Neville Pal M.D. / [id number] Record Of Operation [address] [address] NAME: SUSHMA WOODALL : 62 STATUS : ADM IN PAT#: [id number] AGE: 55 ADM/REG DATE : 07/18/16 MR#: [id number] REPORT SERV DATE: 07/24/16 DICTATED BY: NEVILLE PAL DATE: 07/24/16 REPORT STATUS : Draft TRANSCRIBED BY: JOSÉ MANUEL DATE: 07/24/16 CC: Rola Rendon M.D. Michael Goodman, M.D.
--- NOTE | ~2016-07-18 | HP ---
History And Physical [facility] [address] [place] [place]. [address] NAME: SUSHMA WOODALL : 62 STATUS : ADM IN [facility]#: [id number] AGE: 55 ADM/REG DATE : 07/18/16 MR#: [id number] REPORT SERV DATE: 07/19/16 DICTATED BY: NEVILLE PAL DATE: 07/18/16 REPORT STATUS : Draft TRANSCRIBED BY: MODErnesto DATE: 07/18/16 DATE OF ADMISSION: 07/18/2016 REASON FOR ADMISSION: Dehydration and acute kidney injury. The patient was just discharged from [facility] 3 days ago with the same problem. Since she has had the ileostomy, she has been admitted multiple times. She requires Imodium 8 tablets per day with the addition of Sandostatin, and her ileostomy output has been greater than 2 L. Her perineum has not healed completely. It is better but not completely healed as you would expect. I have spoken with Dr. Sheets and there was a trial of other immunologic agents to try to improve this. The patient has multiple allergies which limits medical options and she will not do hyperbaric oxygen, so we are limited in our treatment options. At this point, we have decided to reverse the ileostomy because the risks far outweigh the benefits. PAST MEDICAL HISTORY: Crohn's disease, ileostomy on 02/15/2016, perianal Crohn's disease, parathyroid problem, Staph infection. PAST SURGICAL HISTORY: Multiple seton placements, parathyroidectomy in 2012, and ileostomy 11/18/2015. SOCIAL HISTORY: She smokes 3 cigarettes a day. Does not drink. She is . FAMILY HISTORY: Significant for diabetes, heart disease, and hypertension. ALLERGIES: REMICADE. CURRENT MEDICATIONS: Include octreotide 50 mg p.o. daily; Ultram 50 mg p.o. q.6 hours; Xanax 0.5 mg p.o. t.i.d.; Ambien 5 mg p.o. at bedtime; magnesium oxide 400 mg p.o. t.i.d.; [place] 7.5/325 one p.o. q.6 hours p.r.n.; Zoloft 50 mg p.o. daily; Levaquin which she no longer takes; promethazine 25 mg p.o. q.6 hours p.r.n.; potassium 40 mEq p.o. daily; lisinopril 30 mg p.o. daily; metoprolol 50 mg p.o. daily; Humira; Imuran; Entocort, and she takes 8 Imodium tablets per day. PHYSICAL EXAMINATION: VITAL SIGNS: 74 is the heart rate, blood pressure 111/77. GENERAL: Alert, somewhat cachectic white female, who now walks with a cane. HEENT: Normocephalic, atraumatic. EOMI. PERRLA. Oropharynx is clear. NECK: Supple. No lymphadenopathy. CHEST: Clear to auscultation bilaterally. HEART: Regular rate and rhythm. ABDOMEN: Soft with the ileostomy present in the right lower quadrant. EXTREMITIES: Moves all extremities well. NEUROLOGIC: Cranial nerves 2 through 12 intact. SKIN: No rashes. History And Physical [address] [address] NAME: SUSHMA WOODALL : 62 STATUS : ADM IN [facility]#: [id number] AGE: 55 ADM/REG DATE : 07/18/16 MR#: [id number] REPORT SERV DATE: 07/19/16 DICTATED BY: NEVILLE PAL DATE: 07/18/16 REPORT STATUS : Draft TRANSCRIBED BY: JOSÉ MANUEL DATE: 07/18/16 PLAN: We will do a direct admission for the patient to [facility] given her history of dehydration and acute kidney injury for rehydration and assess her electrolytes. The plan is for ileostomy reversal as soon as possible. We will also check her nutritional status before proceeding with this. I have discussed risks, benefits, and alternatives. They understand and are willing to proceed. OLY/JOSÉ MANUEL Neville Pal M.D. / [id number] CC: Rola Rendon M.D.
[~2016-07-18 12:08] MED LIST changes: +K-PHO1 PO; +KLOR-CON M2020 MEQ PO
[2016-07-18 13:06] LABS: BASOPHILS 0.5 %; BASOPHILS ABSOLUTE 0.05 10/3/uL (0.0-0.16); EOSINOPHILS 1.5 %; EOSINOPHILS ABSOLUTE 0.15 10/3/uL (0.0-0.53); HEMATOCRIT 33.2 % (36.0-48.0); HEMOGLOBIN 11.7 g/dL (12.0-16.0); IMMATURE GRANULOCYTES 0.3 %; IMMATURE GRANULOCYTES ABSOLUTE 0.03 10/3/uL (0.0-0.11); LYMPHOCYTES 24.1 %; LYMPHOCYTES ABSOLUTE 2.44 10/3/uL (0.67-4.30); MANUAL DIFF NO %; MEAN CORPUS HGB CONC 35.2 g/dL (32.0-36.0); MEAN CORPUSCULAR HEMOGLOB 30.5 pg (26.0-34.0); MEAN CORPUSCULAR VOLUME 86.7 fL (80-100); MEAN PLATELET VOLUME 10.2 fL (9.2-13.0); MONOCYTES 4.1 %; MONOCYTES ABSOLUTE 0.42 10/3/uL (0.21-1.20); NEUTROPHILS 69.5 %; NEUTROPHILS ABSOLUTE 7.04 10/3/uL (2.02-8.40); PLATELET COUNT 246 10/3/uL (150-400); RBC DISTRIBUTION WIDTH 16.1 % (12.0-16.0); RED CELL COUNT 3.83 10/6/uL (4.0-5.6); WHITE BLOOD CELLS 10.1 10/3/uL (4.5-10.5)
[2016-07-18 13:33] LABS: BUN (BLOOD UREA NITROGEN) 17 MG/DL (6-23); CHLORIDE, SERUM 108 MMOL/L (96-112); CO2 (CARBON DIOXIDE) 24 MMOL/L (24-34); CREATININE 1.86 MG/DL (0.55-1.02); GFR AFRICAN AMERICAN 35 ML/MIN (>=60); GFR NON AFRICAN AMERICAN 30 ML/MIN (>=60); GLUCOSE, SERUM 95 MG/DL (60-99); PREALBUMIN 27.5 MG/DL (17.0-43.0); SODIUM, SERUM 141 MMOL/L (135-148)
[2016-07-18 13:34] LABS: CALCIUM, SERUM 10.5 MG/DL (8.5-10.4)
[2016-07-19 07:43] LABS: BUN (BLOOD UREA NITROGEN) 21 MG/DL (6-23); CALCIUM, SERUM 9.5 MG/DL (8.5-10.4); CHLORIDE, SERUM 107 MMOL/L (96-112); CO2 (CARBON DIOXIDE) 22 MMOL/L (24-34); CREATININE 1.78 MG/DL (0.55-1.02); GFR AFRICAN AMERICAN 37 ML/MIN (>=60); GFR NON AFRICAN AMERICAN 32 ML/MIN (>=60); GLUCOSE, SERUM 118 MG/DL (60-99); POTASSIUM, SERUM 4.4 MMOL/L (3.5-5.3); SODIUM, SERUM 138 MMOL/L (135-148)
[2016-07-20 06:44] LABS: BUN (BLOOD UREA NITROGEN) 18 MG/DL (6-23); CALCIUM, SERUM 9.1 MG/DL (8.5-10.4); CHLORIDE, SERUM 110 MMOL/L (96-112); CO2 (CARBON DIOXIDE) 22 MMOL/L (24-34); CREATININE 1.57 MG/DL (0.55-1.02); GFR AFRICAN AMERICAN 43 ML/MIN (>=60); GFR NON AFRICAN AMERICAN 37 ML/MIN (>=60); GLUCOSE, SERUM 113 MG/DL (60-99); POTASSIUM, SERUM 4.2 MMOL/L (3.5-5.3); SODIUM, SERUM 142 MMOL/L (135-148)
[2016-07-22 07:34] LABS: BUN (BLOOD UREA NITROGEN) 17 MG/DL (6-23); CALCIUM, SERUM 8.6 MG/DL (8.5-10.4); CHLORIDE, SERUM 113 MMOL/L (96-112); CO2 (CARBON DIOXIDE) 24 MMOL/L (24-34); CREATININE 1.52 MG/DL (0.55-1.02); GFR AFRICAN AMERICAN 45 ML/MIN (>=60); GFR NON AFRICAN AMERICAN 38 ML/MIN (>=60); GLUCOSE, SERUM 116 MG/DL (60-99); POTASSIUM, SERUM 4.3 MMOL/L (3.5-5.3); SODIUM, SERUM 142 MMOL/L (135-148)
[2016-07-24 06:11] LABS: ALBUMIN 2.5 G/DL (3.5-5.0); BUN (BLOOD UREA NITROGEN) 16 MG/DL (6-23); CALCIUM, SERUM 8.6 MG/DL (8.5-10.4); CHLORIDE, SERUM 114 MMOL/L (96-112); CO2 (CARBON DIOXIDE) 24 MMOL/L (24-34); CREATININE 1.53 MG/DL (0.55-1.02); GFR AFRICAN AMERICAN 44 ML/MIN (>=60); GFR NON AFRICAN AMERICAN 38 ML/MIN (>=60); GLUCOSE, SERUM 116 MG/DL (60-99); PHOSPHORUS, SERUM 2.8 MG/DL (2.5-4.5); POTASSIUM, SERUM 4.2 MMOL/L (3.5-5.3); PREALBUMIN 24.4 MG/DL (17.0-43.0); SODIUM, SERUM 143 MMOL/L (135-148)
[2016-07-24 06:24] LABS: BASOPHILS 0.7 %; BASOPHILS ABSOLUTE 0.04 10/3/uL (0.0-0.16); EOSINOPHILS 2.6 %; EOSINOPHILS ABSOLUTE 0.15 10/3/uL (0.0-0.53); IMMATURE GRANULOCYTES 0.2 %; IMMATURE GRANULOCYTES ABSOLUTE 0.01 10/3/uL (0.0-0.11); LYMPHOCYTES 28.9 %; LYMPHOCYTES ABSOLUTE 1.64 10/3/uL (0.67-4.30); MEAN CORPUS HGB CONC 34.7 g/dL (32.0-36.0); MEAN CORPUSCULAR HEMOGLOB 30.5 pg (26.0-34.0); MEAN CORPUSCULAR VOLUME 87.9 fL (80-100); MEAN PLATELET VOLUME 10.2 fL (9.2-13.0); MONOCYTES 6.9 %; MONOCYTES ABSOLUTE 0.39 10/3/uL (0.21-1.20); NEUTROPHILS 60.7 %; NEUTROPHILS ABSOLUTE 3.44 10/3/uL (2.02-8.40); PLATELET COUNT 186 10/3/uL (150-400); RBC DISTRIBUTION WIDTH 15.9 % (12.0-16.0)
[2016-07-24 06:25] LABS: HEMATOCRIT 26.8 % (36.0-48.0); HEMOGLOBIN 9.3 g/dL (12.0-16.0); MANUAL DIFF NO %; RED CELL COUNT 3.05 10/6/uL (4.0-5.6); WHITE BLOOD CELLS 5.7 10/3/uL (4.5-10.5)
[2016-07-24 11:58] LABS: HEMATOCRIT 28.7 % (36.0-48.0); HEMOGLOBIN 9.9 g/dL (12.0-16.0)
[2016-07-25 05:40] LABS: BASOPHILS 0.2 %; BASOPHILS ABSOLUTE 0.02 10/3/uL (0.0-0.16); EOSINOPHILS 0 %; IMMATURE GRANULOCYTES 0.3 %; IMMATURE GRANULOCYTES ABSOLUTE 0.04 10/3/uL (0.0-0.11); LYMPHOCYTES 7.3 %; LYMPHOCYTES ABSOLUTE 0.95 10/3/uL (0.67-4.30); MEAN CORPUS HGB CONC 34.6 g/dL (32.0-36.0); MEAN CORPUSCULAR HEMOGLOB 30.3 pg (26.0-34.0); MEAN CORPUSCULAR VOLUME 87.5 fL (80-100); MEAN PLATELET VOLUME 10.8 fL (9.2-13.0); MONOCYTES 4.1 %; MONOCYTES ABSOLUTE 0.53 10/3/uL (0.21-1.20); NEUTROPHILS 88.1 %; NEUTROPHILS ABSOLUTE 11.48 10/3/uL (2.02-8.40); PLATELET COUNT 193 10/3/uL (150-400); RED CELL COUNT 2.97 10/6/uL (4.0-5.6)
[2016-07-25 05:41] LABS: MANUAL DIFF NO %
[2016-07-25 05:47] LABS: BUN (BLOOD UREA NITROGEN) 17 MG/DL (6-23); CALCIUM, SERUM 9.3 MG/DL (8.5-10.4); CHLORIDE, SERUM 108 MMOL/L (96-112); CO2 (CARBON DIOXIDE) 23 MMOL/L (24-34); CREATININE 1.73 MG/DL (0.55-1.02); GFR AFRICAN AMERICAN 38 ML/MIN (>=60); GFR NON AFRICAN AMERICAN 33 ML/MIN (>=60); GLUCOSE, SERUM 184 MG/DL (60-99); POTASSIUM, SERUM 4.7 MMOL/L (3.5-5.3); SODIUM, SERUM 138 MMOL/L (135-148)
[2016-07-26 06:57] LABS: BUN (BLOOD UREA NITROGEN) 15 MG/DL (6-23); CALCIUM, SERUM 8.8 MG/DL (8.5-10.4); CHLORIDE, SERUM 111 MMOL/L (96-112); CO2 (CARBON DIOXIDE) 25 MMOL/L (24-34); CREATININE 1.48 MG/DL (0.55-1.02); GFR AFRICAN AMERICAN 46 ML/MIN (>=60); GFR NON AFRICAN AMERICAN 40 ML/MIN (>=60); POTASSIUM, SERUM 4.7 MMOL/L (3.5-5.3); SODIUM, SERUM 141 MMOL/L (135-148)
[2016-07-26 06:59] LABS: GLUCOSE, SERUM 110 MG/DL (60-99)
[2016-07-27 05:07] LABS: BUN (BLOOD UREA NITROGEN) 15 MG/DL (6-23); CHLORIDE, SERUM 110 MMOL/L (96-112); CO2 (CARBON DIOXIDE) 23 MMOL/L (24-34); CREATININE 1.54 MG/DL (0.55-1.02); GFR AFRICAN AMERICAN 44 ML/MIN (>=60); GFR NON AFRICAN AMERICAN 38 ML/MIN (>=60); GLUCOSE, SERUM 127 MG/DL (60-99); PHOSPHORUS, SERUM 2.2 MG/DL (2.5-4.5); POTASSIUM, SERUM 4.9 MMOL/L (3.5-5.3); SODIUM, SERUM 139 MMOL/L (135-148)
== END 2016-07-27 17:08 | disposition home or self-care (01) | DRG 330 ==
LOC: 4SO 12:08 → 5SO 07-25 16:35
PROVIDERS: Surgery
PROC: 0DBB0ZZ Excision of Ileum, Open Approach (ICD-10-PCS; principal; 2016-07-24 09:45)
DX: Z43.2 Encounter for attention to ileostomy (principal); N17.9 Acute kidney failure, unspecified; E44.0 Moderate protein-calorie malnutrition; K50.90 Crohn's disease, unspecified, without complications; E86.0 Dehydration; F17.210 Nicotine dependence, cigarettes, uncomplicated; Z83.3 Family history of diabetes mellitus; Z82.49 Family history of ischemic heart disease and other diseases of the circulatory system; Z88.8 Allergy status to other drugs, medicaments and biological substances; Z79.899 Other long term (current) drug therapy; Z88.1 Allergy status to other antibiotic agents; Z68.21 Body mass index [BMI] 21.0-21.9, adult
CPT/HCPCS: 80048; 82040; 83735; 84100; 84134; 85014; 85018; 85025; 88304; A9270-GY; C9113; J0690; J2250; J2270; J2405; J2550; J2710; J2795; J3010; J3475; J7500

== ENCOUNTER 2016-08-04 20:37 | Emergency (ER) | payer OTHER ==
[2016-08-04 19:56] LABS: BASOPHILS 0.3 %; BASOPHILS ABSOLUTE 0.04 10/3/uL (0.0-0.16); EOSINOPHILS 1.2 %; EOSINOPHILS ABSOLUTE 0.16 10/3/uL (0.0-0.53); ER CBC TAT 0 Hrs 09 Mins; HEMATOCRIT 28.2 % (36.0-48.0); HEMOGLOBIN 9.8 g/dL (12.0-16.0); IMMATURE GRANULOCYTES 0.4 %; IMMATURE GRANULOCYTES ABSOLUTE 0.05 10/3/uL (0.0-0.11); LYMPHOCYTES ABSOLUTE 2.18 10/3/uL (0.67-4.30); MEAN CORPUS HGB CONC 34.8 g/dL (32.0-36.0); MEAN CORPUSCULAR HEMOGLOB 30.2 pg (26.0-34.0); MEAN PLATELET VOLUME 9.4 fL (9.2-13.0); MONOCYTES 4.5 %; MONOCYTES ABSOLUTE 0.61 10/3/uL (0.21-1.20); NEUTROPHILS 77.6 %; NEUTROPHILS ABSOLUTE 10.55 10/3/uL (2.02-8.40); RED CELL COUNT 3.24 10/6/uL (4.0-5.6); WHITE BLOOD CELLS 13.6 10/3/uL (4.5-10.5)
[2016-08-04 19:58] LABS: MANUAL DIFF NO %; PLATELET COUNT 296 10/3/uL (150-400)
[2016-08-04 20:13] LABS: BUN (BLOOD UREA NITROGEN) 17 MG/DL (6-23); CHLORIDE, SERUM 108 MMOL/L (96-112); CO2 (CARBON DIOXIDE) 24 MMOL/L (24-34); CREATININE 1.53 MG/DL (0.55-1.02); GFR AFRICAN AMERICAN 44 ML/MIN (>=60); GFR NON AFRICAN AMERICAN 38 ML/MIN (>=60); GLUCOSE, SERUM 134 MG/DL (60-99); SGOT(AST) 12 U/L (5-40); SGPT(ALT) 11 U/L (5-65); SODIUM, SERUM 140 MMOL/L (135-148)
[2016-08-04 20:14] LABS: A/G RATIO 0.6 (0.7-1.9); ALKALINE PHOSPHATASE 191 U/L (45-117); POTASSIUM, SERUM 2.9 MMOL/L (3.5-5.3); TOTAL BILIRUBIN 0.3 MG/DL (0-1.2)
== END 2016-08-04 21:52 | disposition home or self-care (01) ==
LOC: ER 20:37
PROVIDERS: Emergency Medicine
DX: K91.840 Postprocedural hemorrhage of a digestive system organ or structure following a digestive system procedure (principal); K62.5 Hemorrhage of anus and rectum; K60.3 Anal fistula; E87.6 Hypokalemia; Z87.442 Personal history of urinary calculi; F41.9 Anxiety disorder, unspecified; Z90.49 Acquired absence of other specified parts of digestive tract; I12.9 Hypertensive chronic kidney disease with stage 1 through stage 4 chronic kidney disease, or unspecified chronic kidney disease; N18.9 Chronic kidney disease, unspecified; Z88.1 Allergy status to other antibiotic agents; Z88.8 Allergy status to other drugs, medicaments and biological substances; Z79.899 Other long term (current) drug therapy
CPT/HCPCS: 36415; 80053; 83735; 85025; 86850; 86900; 86901; 99285; A9270-GY